=== PATIENT | male | born 1990 ===

== ENCOUNTER 2022-06-10 22:57 | Emergency (ER) | payer SELFPAY ==
[2022-06-10 23:06] VITALS: BP 122/62
--- NOTE | 2022-06-12 08:51 | Electrocardiograph Report ---
[facility] Test Date: 2022-06-10 Test Time: 23:12:58 Pat Name: TREVOR GONZALEZ Department: Room: Gender: M Unit Assistant: CATERINA : 1990 Requested By: CUCO GARVEY Order Number: [id number] Reading MD: Alejandro Burrell Measurements Intervals [place] Rate: 77 P: 63 TX: 181 QRS: 57 QRSD: 77 T: -18 QT: 345 QTc: 391 Interpretive Statements Sinus rhythm Nonspecific T abnormalities, diffuse leads No previous ECG available for comparison Electronically Signed On 06-12-2022 8:51:09 EDT by Alejandro Burrell
== END 2022-06-11 04:36 | disposition left against medical advice (07) ==
LOC: ED 22:57
DX: R10.9 Unspecified abdominal pain (principal); Z53.21 Procedure and treatment not carried out due to patient leaving prior to being seen by health care provider
CPT/HCPCS: 93005